=== PATIENT | female | born 1940 ===

== ENCOUNTER 2017-08-04 05:16 | Day surgery (SDC) | payer MEDICARE, OTHER ==
[~2017-08-04] VITALS: Ht 170.2 cm; Wt 64.4 kg
--- NOTE | ~2017-08-04 | EGD ---
EGD REPORT [facility] [address] [place] [address] NAME: JOSE HOBBS : [birth year] STATUS : REG [facility]#: [id number] AGE: 77 ADM/REG DATE : 08/04/17 MR#: [id number] REPORT SERV DATE: 08/06/17 DICTATED BY: ZAK MENDEZ DATE: 08/06/17 REPORT STATUS : Draft TRANSCRIBED BY: [employer] DATE: 08/06/17 [facility] Patient Name: Jose Hobbs Date of : 1940 Attending MD: ZAK MENDEZ MD Procedure Date No Time: 08/04/2017 Procedure: Colonoscopy Indications: Chronic diarrhea Referring MD: AGUILA CANTRELL Medicines: Propofol per Anesthesia Complications: No immediate complications. Procedure: Pre-Anesthesia Assessment: - ASA Grade Assessment: III - A patient with severe systemic disease. After I obtained informed consent, the scope was passed under direct vision. Throughout the procedure, the patient's blood pressure, pulse, and oxygen saturations were monitored continuously. The PCF [id number] was introduced through the anus and advanced to 10 cm into the ileum. The colonoscopy was performed without difficulty. The patient tolerated the procedure well. The quality of the bowel preparation was excellent. Findings: The terminal ileum appeared normal. Normal mucosa was found in the entire colon. Biopsies were taken with a cold forceps for histology. The retroflexed view of the distal rectum and anal verge was normal and showed no anal or rectal abnormalities. Impression: - The examined portion of the ileum was normal. - Normal mucosa in the entire examined colon. Biopsied. Recommendation: - The patient will be observed post-procedure, until all discharge criteria are met. - Return to previous diet today. - Continue present medications. - Await pathology results. - The findings and recommendations were discussed with the patient and their family. - After the procedure, if you experience any pain in abdomen or chest,shortness of breath,fever,chills,blood in stool,rectal bleeding,vomiting of any material,nausea,black stools or weakness or dizziness, GO TO THE EMERGENCY IMMEDIATELY!!!!!!!!! EGD REPORT [facility] [address] [address] NAME: JOSE HOBBS : [birth year] STATUS : REG [facility] [place] PAT#: [id number] AGE: 77 ADM/REG DATE : 08/04/17 MR#: [id number] REPORT SERV DATE: 08/06/17 DICTATED BY: ZAK MENDEZ. DATE: 08/06/17 REPORT STATUS : Draft TRANSCRIBED BY: [employer] DATE: 08/06/17 Procedure Code(s): --- Professional --- 06152, Colonoscopy, flexible, proximal to splenic flexure; with biopsy, single or multiple Diagnosis Code(s): --- Professional --- K52.9, Noninfective gastroenteritis and colitis, unspecified CPT copyright 2013 [employer]. All rights reserved. The codes documented in this report are preliminary and upon offset label rewinder review may be revised to meet current compliance requirements. Zak Mendez MD ZAK MENDEZ MD 08/04/2017 8:56 AM This report has been signed electronically. Number of Addenda: 0 Note Initiated On: 08/04/2017 7:24 AM Scope Withdrawal Time 0 hours 13 minutes 21 seconds [address] [address]
--- NOTE | ~2017-08-04 | EGD ---
EGD REPORT [facility] [address] [address] NAME: JOSE HOBBS : [birth year] STATUS : REG [facility]#: [id number] AGE: 77 ADM/REG DATE : 08/04/17 MR#: [id number] REPORT SERV DATE: 08/06/17 DICTATED BY: ZAK MENDEZ DATE: 08/06/17 REPORT STATUS : Draft TRANSCRIBED BY: [employer] DATE: 08/06/17 [facility] Patient Name: Jose Hobbs Date of : 1940 Attending MD: ZAK MENDEZ MD Procedure Date No Time: 08/04/2017 Procedure: Upper GI endoscopy Indications: Persistent vomiting Referring MD: AGUILA CANTRELL Medicines: Propofol per Anesthesia Complications: No immediate complications. Procedure: Pre-Anesthesia Assessment: - ASA Grade Assessment: III - A patient with severe systemic disease. After obtaining informed consent, the endoscope was passed under direct vision. Throughout the procedure, the patient's blood pressure, pulse, and oxygen saturations were monitored continuously. The GIF [id number] was introduced through the mouth, and advanced to the third part of duodenum. The upper GI endoscopy was accomplished without difficulty. The patient tolerated the procedure well. The upper GI endoscopy was accomplished without difficulty. The patient tolerated the procedure well. Findings: LA Grade B (one or more mucosal breaks greater than 5 mm, not extending between the tops of two mucosal folds) esophagitis with no bleeding was found in the lower third of the esophagus. A small hiatus hernia was present. Normal mucosa was found in the entire duodenum. Biopsies were taken with a cold forceps for histology. Impression: - LA Grade B erosive esophagitis. - Hiatus hernia. - Normal mucosa was found in the entire examined duodenum. Biopsied. Procedure Code(s): --- Professional --- 88151, Esophagogastroduodenoscopy, flexible, transoral; with biopsy, single or multiple Diagnosis Code(s): --- Professional --- K20.8, Other esophagitis K44.9, Diaphragmatic hernia without obstruction or EGD REPORT [facility] [address] [place], [place] [address]. [address] NAME: JOSE HOBBS : [birth year] STATUS : [place] [facility] [place]#: [id number] AGE: 77 ADM/REG DATE : 08/04/17 MR#: [id number] REPORT SERV DATE: 08/06/17 DICTATED BY: ZAK MENDEZ. DATE: 08/06/17 REPORT STATUS : Draft TRANSCRIBED BY: [employer] DATE: 08/06/17 gangrene R11.10, Vomiting, unspecified CPT copyright 2013 [employer]. All rights reserved. The codes documented in this report are preliminary and upon automotive customer experience advisor review may be revised to meet current compliance requirements. Zak Mendez MD ZAK MENDEZ MD 08/04/2017 8:49 AM This report has been signed electronically. Number of Addenda: 0 Note Initiated On: 08/04/2017 7:24 AM Scope Withdrawal Time 0 hours 0 minutes [address] [facility] [place] [place] [id number]
[~2017-08-04 05:16] MED LIST: ALTA2.5 PO; BENTYL20 PO; CRESTOR20 MG PO; CYMBALTA60 PO; EVOXAC30 MG PO; KLONO5 PO; KLOR-CON M2020 MEQ PO; NEUR100 PO; NORV25 PO; REMERON30 MG PO; SPIRO50 PO; ZANTAC150 MG PO
== END 2017-08-04 23:59 | disposition home health service (06) ==
LOC: DMU 05:16
PROVIDERS: Internal Medicine Gastroenterology
PROC: 0DBE8ZX Excision of Large Intestine, Via Natural or Artificial Opening Endoscopic, Diagnostic (ICD-10-PCS; principal; 2017-08-04 08:00)
PROC: 0DB98ZX Excision of Duodenum, Via Natural or Artificial Opening Endoscopic, Diagnostic (ICD-10-PCS; 2017-08-04 08:00)
DX: K52.832 Lymphocytic colitis (principal); K44.9 Diaphragmatic hernia without obstruction or gangrene; I10 Essential (primary) hypertension; G62.9 Polyneuropathy, unspecified; E78.5 Hyperlipidemia, unspecified; M79.7 Fibromyalgia; F32.9 Major depressive disorder, single episode, unspecified; F41.9 Anxiety disorder, unspecified; K21.9 Gastro-esophageal reflux disease without esophagitis; Z98.890 Other specified postprocedural states; Z79.899 Other long term (current) drug therapy; Z88.8 Allergy status to other drugs, medicaments and biological substances; Z88.2 Allergy status to sulfonamides; Z90.710 Acquired absence of both cervix and uterus; Z98.41 Cataract extraction status, right eye; Z98.42 Cataract extraction status, left eye
CPT/HCPCS: 87177; 87209; 87329; 87493; 87493-59; 88305